=== PATIENT | female | born 1965 | race Caucasian/White ===

== ENCOUNTER 2018-11-04 23:40 | Emergency (ER) | payer BC ==
[~2018-11-04] VITALS: Ht 170.2 cm; Wt 77.0 kg
[2018-11-04] MEDS ORDERED: acetaminophen 325mg tablet PO ONE (23:50)
[2018-11-04] MEDS ORDERED: normal saline 1000ML IV soln IVB ONE (23:55)
[2018-11-05 00:21] LABS: URINE HCG NEGATIVE (NEG)
[2018-11-05 00:31] LABS: ALANINE AMINOTRANSFERASE 28 U/L (12-78); ALBUMIN 3.7 G/DL (3.4-5.0); ALBUMIN/GLOBULIN RATIO 0.8 (1.1-1.5); ALKALINE PHOSPHATASE 94 IU/L (46-116); ANION GAP 13 (8-16); ASPARTATE AMINO TRANSFERASE 18 U/L (10-37); BILIRUBIN,TOTAL 0.7 MG/DL (0.1-1.0); BLOOD UREA NITROGEN 7 MG/DL (7-18); BUN/CREATININE RATIO 8.6 (6.6-38.0); CALCIUM 9.6 MG/DL (8.5-10.1); CHLORIDE 99 MMOL/L (99-107); CREATININE 0.81 MG/DL (0.40-0.90); GLUCOSE 120 MG/DL (70-104); POTASSIUM 3.7 MMOL/L (3.5-5.1); SODIUM 137 MMOL/L (135-145); TOTAL CARBON DIOXIDE 25.2 MMOL/L (24-32); TOTAL PROTEIN 8.4 G/DL (6.4-8.2); eGFR 74 ML/MIN
[2018-11-05 00:35] LABS: PARTIAL THROMBOPLASTIN TIME 31 SECONDS (22-32)
[2018-11-05 00:36] LABS: BASOPHILS % (AUTO) 0.3 % (0-1); EOSINOPHILS % (AUTO) 0 % (0-6); HEMATOCRIT 39.8 % (35.0-45.0); HEMOGLOBIN 14.1 g/dl (12.0-16.0); LYMPHOCYTES # (AUTO) 0.9 X10'3 (1.1-4.8); LYMPHOCYTES % (AUTO) 7.6 % (21-51); MEAN CORPUSCULAR HGB CONC 35.3 g/dL (33.0-36.5); MEAN CORPUSCULAR VOLUME 90.6 FL (78-98); MEAN PLATELET VOLUME 9.5 FL (7.4-10.4); MONOCYTES # (AUTO) 0.8 X10'3 (0-0.9); MONOCYTES % (AUTO) 6.9 % (2-12); NEUTROPHILS # (AUTO) 9.6 X10'3 (1.8-7.7); NEUTROPHILS % (AUTO) 85.2 % (42-75); PLATELET COUNT 194 X10'3 (140-440); RED BLOOD COUNT 4.39 X10'6 (4.20-5.60); RED CELL DISTRIBUTION WIDTH 12.8 % (11.5-14.5); WHITE BLOOD COUNT 11.3 X10'3 (4.5-11.0)
[2018-11-05 00:45] LABS: COLOR,URINE YELLOW (Yellow); GLUCOSE, URINE NEGATIVE (Neg); KETONES,URINE 40 mg/dl (Neg); LEUKOCYTE ESTERASE ,URINE SMALL (Neg); NITRITES, URINE NEGATIVE (Neg); OCCULT BLOOD,URINE MODERATE (Neg); PROTEIN,URINE 30 mg/dl (Neg)
[2018-11-05 00:46] LABS: CLARITY,URINE SLIGHTLY CLOUDY (Clear); UA COLLECTION TYPE CLN CATCH MIDSTREAM
[2018-11-05 01:01] LABS: BACTERIA,URINE FEW /HPF (Neg); MUCUS STRANDS FEW /LPF (Neg); SQUAMOUS EPITHELIAL CELL,UR FEW /LPF (FEW); TRANSITIONAL EPI CELLS,URINE FEW /HPF
[2018-11-05] MEDS ORDERED: metroNIDAZOLE 500mg tablet PO ONE (01:20)
--- NOTE | 2018-11-05 01:34 | NUR ---
AFTER 20 MINS IN THE BATHROOM, PT UNABLE TO PROVIDE FECAL SAMPLE
[2018-11-05] MEDS ORDERED: DOXY100C2 PO (01:56)
[2018-11-05 02:24] VITALS: BP 115/64
== END 2018-11-05 02:25 | disposition home or self-care (01) ==
LOC: ER 23:41
DX: A09 Infectious gastroenteritis and colitis, unspecified (principal); R50.9 Fever, unspecified; R19.7 Diarrhea, unspecified; Z87.442 Personal history of urinary calculi; Z79.899 Other long term (current) drug therapy
CPT/HCPCS: 36415; 71045; 80053; 81001; 81025; 83605; 84145; 85025; 85610; 85730; 87040; 87077; 87088; 87186; 96360; 99284; J7030; J3490